=== PATIENT | male | born 1965 | race Caucasian/White ===

== ENCOUNTER 2021-02-14 11:19 | Inpatient (IN) | payer SELFPAY ==
[~2021-02-14] VITALS: Ht 198.1 cm; Wt 117.3 kg
--- NOTE | ~2021-02-14 | OP ---
PATIENT NAME: CEDRICK MIRAMONTES MEDICAL RECORD: [id number] :61 LOCATION:[id number] ADMISSION DATE:02/14/21 SURGEON: SUKI TRISTAN MD DATE OF OPERATION: 02/14/2021 PREOPERATIVE DIAGNOSIS: Left tibia/fibula fracture. POSTOPERATIVE DIAGNOSIS: Left tibia/fibula fracture. PROCEDURE PERFORMED: 1. Intramedullary nailing, left tibia. 2. Closed management of left fibula. INDICATIONS FOR THE PROCEDURE: Mr. Miramontes is a 55-year-old male who was walking in the [place] earlier today when he tripped and fell, injuring his left leg. He sustained a fracture of the distal tibia/fibula. He was seen in the Emergency Department and evaluated and arrangements were made for him to come to the operating room for operative repair. Risks, benefits and alternatives of surgery were discussed with the patient and his family and consent was obtained. DESCRIPTION OF THE PROCEDURE: The patient was met in the holding area where his identity and confirmation of procedure was performed. The left lower extremity was marked. He was taken to the operating room where he was placed supine on the operating table, and anesthesia was administered. A tourniquet was applied to the left thigh and left leg was prepped and draped in a sterile fashion. The patient received preoperative antibiotics and a timeout was performed prior to initiating the case. On initiation of the case, a lateral parapatellar approach to the anterior slope of the proximal tibia was utilized for exposure. We incised through the skin and subcutaneous tissues, dissected down to the lateral retinaculum. The retinaculum was then split longitudinally and elevated off the underlying capsule. The anterior slope of the tibia was able to easily be accessed. Our starting pin was then placed in our starting point at the medial border of the lateral tibial spine was obtained. Our position was confirmed in both AP and lateral planes. Once we were pleased with our position, the pin was advanced and overreamed with our opening reamer. A ball-tipped guidewire was then placed and advanced down to the fracture site. Fracture was located at the distal diaphysis. There were some rotation to the fracture as well as fracture of the fibula just distal to this. Small incisions were made at the fracture line and a [id number]-dm-xyffl clamp was placed to aid in fracture reduction to help maintain its position. We were able to reduce the fracture and hold it in place. Our guidewire was then advanced into the distal tibia until we were pleased with its position in the distal tibia. We then began reaming starting with the size 9, reaming up sequentially to a size 12. We then measured and we were able to place a size 11 x 405 mm tibial nail. The nail was advanced down over the wire as the knee was held in slight flexion. We advanced down to the fracture site and then advanced across the fracture as we held the tibia securely in position. We were pleased with our position distally and the nail just buried proximally. Two locking screws were then placed through the outrigger device of the proximal nail. The outrigger was then removed and the leg was placed into extension. We again confirmed our fracture reduction. We then placed 2 medial to lateral locking screws in the distal segment using the perfect [place] technique. Incision was made and the hole was drilled under fluoroscopy. These were then measured and our screws were inserted. This provided good fixation of the tibia fracture. Final images were obtained that showed good alignment of the tibia and fibula fracture. Stress view was OPERATIVE REPORT [id number] CEDRICK MIRAMONTES obtained of the ankle as well, but did not show any evidence of ankle instability. The wounds were irrigated thoroughly with saline. The deep retinaculum was closed with #1 Vicryl suture. The subcutaneous tissue was closed with 2-0 and the skin was closed with kimmy at the knee. The remainder of the incision sites were closed with nylon suture. Sterile dressing was placed. The patient was placed into a boot, turned back over to anesthesia where he was awakened, extubated, and taken to recovery room in stable condition. POSTOPERATIVE PLAN: The patient is going to be admitted for routine postoperative care. He will receive 24 hours of postoperative antibiotics. He will be started on DVT prophylaxis tomorrow. Physical therapy will be consulted to assist with mobility, partial weightbearing left lower extremity. PLAN: Home with the family. COMPLICATIONS: None. ESTIMATED BLOOD LOSS: 50 mL. ANESTHESIA: General. TRANSINT:[id number] Voice Confirmation ID: [id number] DOCUMENT ID: [id number] SUKI TRISTAN MD CC: [id number] DICTATION DATE: 02/14/211712 CLAM GROWER: 02/14/21 712 ADM IN [place] [id number] [place] [id number]
[2021-02-14 13:38] LABS: BASOPHILS 0.4 % (0-2); EOSINOPHILS 0.4 % (0-7); HEMATOCRIT 42.7 % (42.0-54.0); HEMOGLOBIN 14.7 g/dL (13.5-17.5); MCH 29.6 pg (26.0-34.0); MCHC 34.3 g/dL (31.0-37.0); MCV 86.3 fL (80.0-100.0); MEAN PLATELET VOLUME 9.3 fL (7.4-10.4); MONOCYTES 3.7 % (2-11); NEUTROPHILS 86.5 % (40-80); PLATELET COUNT 196 10x3/uL (130-400); RBC 4.95 10x6/uL (4.20-6.10); RDW 13.1 % (11.5-14.5); WBC 14.9 10x3/uL (4.8-10.8)
[2021-02-14 13:45] LABS: APTT 25.9 SECONDS (22.8-39.4); INR 1.19 (0.85-1.17)
[2021-02-14 13:46] LABS: ANION GAP 14.4 mmol/L (8-16); CALCIUM 8.9 mg/dL (8.5-10.1); CARBON DIOXIDE 24.8 mmol/L (21.0-32.0); CREATININE - SERUM 1.1 mg/dL (0.6-1.3); POTASSIUM - SERUM 4.2 mmol/L (3.5-5.1)
[2021-02-14 13:54] LABS: ALBUMIN 4.1 g/dL (3.4-5.0); BILIRUBIN - TOTAL 0.57 mg/dL (0.2-1.3); PROTEIN - SERUM 7.3 g/dL (6.4-8.2)
--- NOTE | 2021-02-14 14:27 | NUR ---
PT READY TO GO TO SURGERY. CONSENT SIGNED. fAMILY MEMBER AT bs. sURIGAICAL STAFF HERE TO TAKE PATIENT. ANTIBIOTIC GIVEN TO SURIGICAL STAFF.
[2021-02-14 18:11] VITALS: BP 135/83
[2021-02-14 18:36] VITALS: BP 137/80; Ht 198.1 cm; Wt 117.3 kg
[2021-02-14 20:00] VITALS: BP 116/70
[2021-02-15] VITALS: BP 112/70
--- NOTE | 2021-02-15 02:50 | NUR ---
I have reviewed this patient and I concur with the Shift Assessment completed by the Licensed Practical Nurse today this shift.
[2021-02-15 04:00] VITALS: BP 107/62
--- NOTE | 2021-02-15 07:23 | NUR ---
PATIENT INQUIRED ON POTENTIAL DC AND WHEN IT WOULD BE. EXPLAINED THAT IT IS UP TO DOCTOR AND HIS PROGRESS WITH PHYSICAL THERPAY. NO OTHER NEEDS VOICED AT THIS TIME. CONTINUE WITH PLAN OF CARE
[2021-02-15 10:02] VITALS: BP 118/73
[2021-02-15 13:32] VITALS: BP 116/63
[2021-02-15] MEDS ORDERED: HYDROCODONE-AC1 EAC2 PO (13:36)
--- NOTE | 2021-02-15 15:54 | NUR ---
I have reviewed this patient and I concur with the Shift Assessment completed by the Licensed Practical Nurse today this shift.
--- NOTE | 2021-02-15 19:46 | MORECARE ---
CASE MANAGEMENT DISCHARGE SUMMARY PATIENT: CEDRICK MIRAMONTES UNIT: [id number] ADM DATE: 02/14/21 AGE: 55 : 61 SEX: M ROOM/BED: D.2230 AUTHOR: KATELIN,DOC PHYSICIAN: REFERRING PHYSICIAN: SUKI TRISTAN MD DATE OF SERVICE: 02/15/21 Case Management Discharge Planning Summary COMMENTS ENTERED DATE: 02/15/21 19:35 CT COMMENT TYPE: Discharge Planning REVIEWER: Hermila Mansfield CM spoke with patient and his spouse. They have a walker and crutches. The patient is uninsured so he and his will do dressing changes as ordered. Patient denies any discharge needs at this time. DCP REVIEW SUMMARY ANTICIPATED D/C DATE: EXPECTED LOS : CASE STATUS: DCP Initiated INITIAL REVIEW: 02/14/2021 INITIAL REVIEWER: Hermila Mansfield FINAL DISCHARGE DISPOSITION: : FINAL REVIEWER: FINAL REVIEW DATE: DCP Focus Questions & Answers QUESTION: ANSWER : PATIENT: CEDRICK MIRAMONTES ENCOUNTER: [id number] MEDICAL RECORD#: [id number] ADMISSION DATE: 02/14/2021 DISCHARGE DATE: 02/15/2021 ATTENDING MD: : AGE: 55 MARITAL STATUS: M DC PLAN ID: [id number] FACILITY: [facility] PRINTED ON: 02/15/21 19:46 CT All edits/amendments must be made on the electronic document DICTATION DATE: 02/15/211945 FRAMING MACHINE TENDER: ROLA 02/15/211945 RPT#: [id number] DC DATE:02/15/21 STATUS: DIS IN [facility] [address] [place] [address] END OF REPORT
--- NOTE | 2021-02-16 08:25 | MORECARE ---
CASE MANAGEMENT DISCHARGE SUMMARY PATIENT: CEDRICK MIRAMONTES UNIT: [id number] ADM DATE: 02/14/21 AGE: 55 : 61 SEX: M ROOM/BED: D.2230 AUTHOR: KATELIN,DOC PHYSICIAN: REFERRING PHYSICIAN: SUKI TRISTAN MD DATE OF SERVICE: 02/16/21 Case Management Discharge Planning Summary COMMENTS ENTERED DATE: 02/15/21 19:35 CT COMMENT TYPE: Discharge Planning REVIEWER: Hermila Mansfield CM spoke with patient and his spouse. They have a walker and crutches. The patient is uninsured so he and his will do dressing changes as ordered. Patient denies any discharge needs at this time. DCP REVIEW SUMMARY ANTICIPATED D/C DATE: EXPECTED LOS : CASE STATUS: DCP Initiated INITIAL REVIEW: 02/14/2021 INITIAL REVIEWER: Hermila Mansfield FINAL DISCHARGE DISPOSITION: : FINAL REVIEWER: FINAL REVIEW DATE: DCP [employer] Questions & Answers QUESTION: ANSWER : PATIENT: CEDRICK MIRAMONTES ENCOUNTER: [id number] MEDICAL RECORD#: [id number] ADMISSION DATE: 02/14/2021 DISCHARGE DATE: 02/15/2021 ATTENDING MD: : AGE: 55 MARITAL STATUS: M DC PLAN ID: [id number] FACILITY: [facility] PRINTED ON: 02/16/21 8:25 CT All edits/amendments must be made on the electronic document DICTATION DATE: 02/16/21824 MARRIAGE AND FAMILY COUNSELOR: ROLA 02/16/21824 RPT#: [id number] DC DATE:02/15/21 STATUS: DIS IN [facility] [address] [place] [address] END OF REPORT
== END 2021-02-15 15:58 | disposition home or self-care (01) | DRG 494 ==
LOC: D.ER 11:19 → D.MS 13:24
PROVIDERS: Family Medicine; ADMIT Orthopaedic Surgery; ATTEND Orthopaedic Surgery
PROC: 0QSH04Z Reposition Left Tibia with Internal Fixation Device, Open Approach (ICD-10-PCS; principal; 2021-02-14 15:00)
DX: S82.202A Unspecified fracture of shaft of left tibia, initial encounter for closed fracture (principal); S82.402A Unspecified fracture of shaft of left fibula, initial encounter for closed fracture; W19.XXXA Unspecified fall, initial encounter